=== PATIENT | male | born 1935 | race African-American/Black ===

== ENCOUNTER 2018-11-15 09:35 | Observation (INO) ==
[2018-11-15] MEDS ORDERED: SODIUM CHLORIDE 0.9% 1,000 ML IV STA (09:56)
[2018-11-15] MEDS ORDERED: ONDANSETRON 4 MG/2 ML VIAL IV STA (09:56)
[2018-11-15] MEDS ORDERED: PANTOPRAZOLE 40 MG VIAL IV STA (09:56)
[2018-11-15 10:24] LABS: Basophils # 0.1 10*3/uL (0.0-0.2); Basophils % 1.3 % (0.0-0.8); Eosinophils # 0.2 10*3/uL (0.0-0.87); Eosinophils % 2.9 % (0.00-10.9); Hematocrit 40.1 VOL% (42.0-52.0); Hemoglobin 12.6 GM/DL (14.0-18.0); Immature Granulocytes % 0.5 %; Immature Granulocytes Absolute 0.03 #; Lymphocytes # 1.2 10*3/uL (1.4-4.0); Lymphocytes % 21.8 % (21.2-54.2); Mean Corpuscular HGB Conc 31.4 GM/DL (32-36); Mean Corpuscular Volume 81.7 FL (87-102); Mean Platelet Volume 10.8 FL (9.6-12.0); Monocytes % 10.6 % (1.7-12.7); Neutrophils % 62.9 % (38.7-73.9); Platelet Count 246 T/CUMM (130-400); Red Blood Count 4.91 MC/CUMM (3.8-5.5); White Blood Count 5.5 T/CUMM (4-12)
[2018-11-15 10:31] LABS: INR 1.2; PT Patient Result 13.2 SECS; Partial Thromboplastin Time 27.1 SECS (0-40)
[2018-11-15 11:23] LABS: Albumin 3.4 G/DL (3.4-5.0); Bilirubin,Total 0.6 MG/DL (0.2-1.0); Calcium 9.3 MG/DL (8.5-10.1); Osmolality,Calculated 293.8 MOS/KG (273-304); Total Protein 6.5 G/DL (6.4-8.3)
[2018-11-15] MEDS ORDERED: LACTULOSE 20 GM/30 ML UDCUP PO PRN (12:45)
[2018-11-15] MEDS ORDERED: ACETAMINOPHEN 325 MG TABLET PO PRN (12:45)
[2018-11-15] MEDS ORDERED: ONDANSETRON 4 MG/2 ML VIAL IV PRN (12:45)
[2018-11-15 13:33] LABS: Risk Ratio 3.55; Thyroid Stimulating Hormone 1.81 uIU/ml (0.358-3.74); VLDL CHOLESTEROL 23.8 MG/DL
[2018-11-15] MEDS ORDERED: GLUCAGON 1 MG VIAL IM PRN (13:40)
[2018-11-15] MEDS ORDERED: DEXTROSE 50% 25 GM/50 ML VIAL IV PRN (13:40)
[2018-11-15] MEDS: INSULIN REGULAR 100 UNIT/ML SUBCUT SCH ×2 (19:26→20:05)
[2018-11-15 20:24] LABS: Hematocrit 34.7 VOL% (42.0-52.0); Hemoglobin 10.8 GM/DL (14.0-18.0)
[2018-11-15] MEDS: HYDROCORTISONE 25 MG SUPP RECTAL SCH (20:42)
[2018-11-15] MEDS: SIMVASTATIN 20 MG TABLET PO SCH (20:42)
[2018-11-16 05:43] LABS: Basophils # 0.1 10*3/uL (0.0-0.2); Basophils % 1.3 % (0.0-0.8); Eosinophils # 0.3 10*3/uL (0.0-0.87); Eosinophils % 4.8 % (0.00-10.9); Hematocrit 35.7 VOL% (42.0-52.0); Hemoglobin 11.4 GM/DL (14.0-18.0); Immature Granulocytes % 0.2 %; Immature Granulocytes Absolute 0.01 #; Lymphocytes # 1.5 10*3/uL (1.4-4.0); Lymphocytes % 26.8 % (21.2-54.2); Mean Corpuscular HGB Conc 31.9 GM/DL (32-36); Mean Corpuscular Volume 81.5 FL (87-102); Mean Platelet Volume 11.5 FL (9.6-12.0); Monocytes % 12.5 % (1.7-12.7); Neutrophils % 54.4 % (38.7-73.9); Platelet Count 221 T/CUMM (130-400); Red Blood Count 4.38 MC/CUMM (3.8-5.5); Red Cell Distribution Width 19.9 % (9.3-17.3); White Blood Count 5.4 T/CUMM (4-12)
[2018-11-16 05:46] LABS: Hematocrit 35.9 VOL% (42.0-52.0); Hemoglobin 11.4 GM/DL (14.0-18.0)
[2018-11-16 06:04] LABS: Calcium 8.9 MG/DL (8.5-10.1); Osmolality,Calculated 288.8 MOS/KG (273-304)
[2018-11-16 06:21] LABS: Calcium 8.8 MG/DL (8.5-10.1); Osmolality,Calculated 288.8 MOS/KG (273-304)
[2018-11-16 06:58] LABS: Apearance,Urine CLEAR (Clear); Bilirubin,Urine Negative (Negative); Blood, Urine Negative (Negative); Glucose,Urine (UA) Negative (Negative); Ketones,Urine Negative (Negative); Mucus,Urine Occasional /LPF (Occasional); Nitrite,Urine Negative (Negative); Protein,Urine Negative; RBC,Urine 2 /HPF (0-4); Squamous Epithelial Cell,Urine Occasional /HPF (0-10); Urine Color Yellow (Yellow); Urine Specific Gravity 1.013 (1.001-1.035); WBC,Urine 1 /HPF (0-6)
[2018-11-16] MEDS: DILTIAZEM CD 120 MG CAPSULE PO SCH (08:23)
[2018-11-16] MEDS: FUROSEMIDE 40 MG TABLET PO SCH (08:25)
[2018-11-16] MEDS: PANTOPRAZOLE 40 MG TABLET PO SCH (08:25)
[2018-11-16] MEDS: HYDROCORTISONE 25 MG SUPP RECTAL SCH ×2 (08:26→20:13)
[2018-11-16] MEDS: FENOFIBRATE 160 MG TABLET PO SCH (08:26)
[2018-11-16] MEDS: INSULIN REGULAR 100 UNIT/ML SUBCUT SCH ×4 (08:33→20:12)
[2018-11-16] MEDS: SODIUM CHLORIDE 0.9% 1,000 ML IV SCH ×2 (11:57→23:11)
[2018-11-16 14:08] LABS: Hematocrit 37.9 VOL% (42.0-52.0); Hemoglobin 11.8 GM/DL (14.0-18.0)
[2018-11-16] MEDS: SIMVASTATIN 20 MG TABLET PO SCH (20:13)
[2018-11-16 20:21] LABS: Hematocrit 39.5 VOL% (42.0-52.0); Hemoglobin 12.3 GM/DL (14.0-18.0)
[2018-11-17 06:29] LABS: Basophils % 0.6 % (0.0-0.8); Eosinophils # 0.2 10*3/uL (0.0-0.87); Hematocrit 37.9 VOL% (42.0-52.0); Hemoglobin 11.7 GM/DL (14.0-18.0); Immature Granulocytes % 0.4 %; Immature Granulocytes Absolute 0.02 #; Lymphocytes # 1.3 10*3/uL (1.4-4.0); Lymphocytes % 23.5 % (21.2-54.2); Mean Corpuscular HGB Conc 30.9 GM/DL (32-36); Mean Corpuscular Volume 81.7 FL (87-102); Mean Platelet Volume 10.8 FL (9.6-12.0); Monocytes % 10.5 % (1.7-12.7); Platelet Count 202 T/CUMM (130-400); Red Blood Count 4.64 MC/CUMM (3.8-5.5); Red Cell Distribution Width 19.7 % (9.3-17.3); White Blood Count 5.5 T/CUMM (4-12)
[2018-11-17 06:49] LABS: Calcium 8.9 MG/DL (8.5-10.1)
[2018-11-17] MEDS: INSULIN REGULAR 100 UNIT/ML SUBCUT SCH ×3 (07:45→15:49)
[2018-11-17] MEDS: DILTIAZEM CD 120 MG CAPSULE PO SCH (08:21)
[2018-11-17] MEDS: FUROSEMIDE 40 MG TABLET PO SCH (08:22)
[2018-11-17] MEDS: HYDROCORTISONE 25 MG SUPP RECTAL SCH (08:22)
[2018-11-17] MEDS: PANTOPRAZOLE 40 MG TABLET PO SCH (08:22)
[2018-11-17] MEDS: FENOFIBRATE 160 MG TABLET PO SCH (08:49)
[2018-11-17 15:49] VITALS: BP 151/94
== END 2018-11-17 16:10 | disposition home health service (06) ==
LOC: N.ED 09:35 → N.EDINP 11:04 → INTOOBSV 11:04 → N.5E 12:55
PROVIDERS: ADMIT Internal Medicine; ATTEND Internal Medicine